=== PATIENT | male | born 1945 | race Caucasian/White ===

== ENCOUNTER 2018-09-25 12:19 | Inpatient (IN) | payer MEDICARE, OTHER ==
[~2018-09-25] VITALS: Ht 175.3 cm; Wt 110.0 kg
[2018-09-25] VITALS (9 sets, daily range): BP systolic 109–181; BP diastolic 63–94
[~2018-09-25 12:19] MED LIST: CITA-278 PO; HCTZ; INSULIN; METF500T7 PO; NOR5T PO; ROSU5TAB4 PO; ZES2.5T PO
[2018-09-25] MEDS ORDERED: enoxaparin 100mg/ml syringe SUBCUT ONE ×2 (12:30)
--- NOTE | 2018-09-25 12:30 | NUR ---
EKG sent to Dr. Charles via text.
[2018-09-25] MEDS ORDERED: nitroGLYCERIN-Tridil 50MG/D5W 250 ML IV PRN (12:31)
[2018-09-25] MEDS ORDERED: LANTUS SQ (12:38)
[2018-09-25 12:40] LABS: BASOPHILS # (AUTO) 0.1 X10'3 (0-0.2); BASOPHILS % (AUTO) 0.7 % (0-1); EOSINOPHILS # (AUTO) 0.1 X10'3 (0-0.9); EOSINOPHILS % (AUTO) 1.6 % (0-6); HEMATOCRIT 51.7 % (42.0-52.0); HEMOGLOBIN 16.7 g/dl (14.0-17.9); LYMPHOCYTES # (AUTO) 1.4 X10'3 (1.1-4.8); LYMPHOCYTES % (AUTO) 20.2 % (21-51); MEAN CORPUSCULAR HEMOGLOBIN 28.9 PG (27.0-31.0); MEAN CORPUSCULAR HGB CONC 32.4 % (33.0-36.5); MEAN CORPUSCULAR VOLUME 89.2 FL (78-98); MEAN PLATELET VOLUME 9.5 FL (7.4-10.4); MONOCYTES # (AUTO) 0.5 X10'3 (0-0.9); MONOCYTES % (AUTO) 6.3 % (2-12); NEUTROPHILS # (AUTO) 5.1 X10'3 (1.8-7.7); NEUTROPHILS % (AUTO) 71.2 % (42-75); PLATELET COUNT 223 X10'3 (140-440); RED CELL DISTRIBUTION WIDTH 12.7 % (11.5-14.5); WHITE BLOOD COUNT 7.2 X10'3 (4.5-11.0)
[2018-09-25 12:54] LABS: ALANINE AMINOTRANSFERASE 28 U/L (12-78); ALBUMIN 3.3 G/DL (3.4-5.0); ALBUMIN/GLOBULIN RATIO 0.8 (1.1-1.5); ALKALINE PHOSPHATASE 135 IU/L (46-116); ANION GAP 13 (8-16); ASPARTATE AMINO TRANSFERASE 26 U/L (10-37); BILIRUBIN,TOTAL 0.4 MG/DL (0.1-1.0); BLOOD UREA NITROGEN 13 MG/DL (7-18); BUN/CREATININE RATIO 12.3 (5.4-32.0); CALCIUM 8.5 MG/DL (8.5-10.1); CHLORIDE 101 MMOL/L (99-107); CREATININE 1.06 MG/DL (0.60-1.10); GLUCOSE 334 MG/DL (70-104); SODIUM 135 MMOL/L (135-145); TOTAL CARBON DIOXIDE 21.3 MMOL/L (24-32); TOTAL PROTEIN 7.2 G/DL (6.4-8.2); eGFR 69 ML/MIN
[2018-09-25 13:02] LABS: MAGNESIUM 1.8 MG/DL (1.5-2.4)
[2018-09-25] MEDS ORDERED: normal saline 1000ml 1,000 ML IV SCH (13:36)
[2018-09-25] MEDS ORDERED: magnesium 4gm in 100ml NS 100 ML IV PRN (13:40)
[2018-09-25] MEDS ORDERED: magnesium 2GM in 50ml NS 50 ML IV PRN (13:40)
[2018-09-25] MEDS ORDERED: ondansetron/PF 4mg/2ml inj IV PRN (13:40)
[2018-09-25] MEDS ORDERED: potassium Cl 40MEQ/NS 500ml 500 ML IV PRN ×2 (13:40)
[2018-09-25] MEDS ORDERED: potassium Cl 20 mEq SR tablet PO PRN ×2 (13:40)
[2018-09-25] MEDS ORDERED: morphine 4 MG/ML inj SYRINge IV PRN (13:40)
[2018-09-25] MEDS ORDERED: magnesium Cl slow-release 64mg tablet PO PRN (13:40)
--- NOTE | 2018-09-25 16:02 | NUR ---
patient lying in gurney. no s/s of distress observed. will continue to monitor.
[2018-09-25] MEDS ORDERED: fentaNYL/PF 50MCG/1 ML 2ML syringe ONE ×2 (16:23→17:11)
[2018-09-25] MEDS ORDERED: midazolam 2 mg/2 ml injection ONE ×3 (16:23→17:33)
[2018-09-25] MEDS ORDERED: heparin 1,000unit/ml 10ml vial 10 ML ONE (16:24)
[2018-09-25] MEDS ORDERED: LIDOcaine 1% (10mg/ml)w/preservative injection 20ml MDV ONE (16:24)
[2018-09-25] MEDS ORDERED: iohexol 350 MG/1 ML 200ml bottle ONE (16:24)
[2018-09-25] MEDS ORDERED: iohexol 350 MG/ML 50ML vial IV ONE (17:06)
[2018-09-25] MEDS ORDERED: diphenhydrAMINE 50 mg/ml inj ONE (17:23)
[2018-09-25] MEDS ORDERED: iohexol 350MG/ML 100ml bottle IV ONE (17:30)
[2018-09-25] MEDS ORDERED: ticagrelor 90mg tablet ONE (17:46)
--- NOTE | 2018-09-25 17:57 | NUR ---
Patient in room ED 4. I have received report from JULIAN Self and had the opportunity to ask questions. Awaiting pt's arrival from cath lab manager.
--- NOTE | 2018-09-25 18:10 | NUR ---
Pt arrived from [facility] via [facility]urney & transferred in to bed without difficulty. Femoral cath site assessed, no hematoma, dressing CDI. Vital signs obtained, pt instructed to remain flat and not to move legs.
--- NOTE | 2018-09-25 18:15 | NUR ---
Patient in room PCU 3011. I have received report from Hamida JORDAN and had the opportunity to ask questions and assume patient care. Patient just arrived from [facility]. Patient is to remain supine for 3 hours. Patient is moving leg stating "I have to pee." Assisted patient with using urinal and educated patient on needing to keep leg still. Patient state "I understand and I will try." RN will continue to reassess and monitor.
--- NOTE | 2018-09-25 18:15 | NUR ---
Problems reprioritized. Patient report given, questions answered & plan of care reviewed with JULIAN Mills.
--- NOTE | 2018-09-25 19:00 | NUR ---
Re educated patient on needing to keep still, and continue to be flat.
[2018-09-25] MEDS ORDERED: MESSAGE TO PHARMACY PO ONE (19:15)
[2018-09-25] MEDS ORDERED: OXAZEpam 15mg capsule PO PRN (19:20)
[2018-09-25] MEDS ORDERED: proCHLORperazine 10 MG/2 ml inj IV PRN (19:20)
[2018-09-25] MEDS ORDERED: HYDROcodone/acetaminophen 10/325mg tab PO PRN (19:20)
[2018-09-25] MEDS ORDERED: normal saline 1000ml 1,000 ML IV ONE (19:20)
[2018-09-25] MEDS ORDERED: HYDROcodone/acetaminophen 5mg/325mg tablet PO PRN (19:20)
[2018-09-25] MEDS ORDERED: heparin, porcine 5000 units/ml vial SQ SCH (20:00)
--- NOTE | 2018-09-25 20:15 | NUR ---
Patient states he has restless leg syndrome, continues to move is leg. Serax given. Will continue to monitor. No hematoma noted. Site is soft, non tender, pedal pulse in tact.
[2018-09-25] MEDS ORDERED: insulin glargine (Lantus) pen - multi-dose SQ SCH (21:00)
[2018-09-25] MEDS ORDERED: amLODIPine 5mg tablet PO SCH (21:00)
--- NOTE | 2018-09-25 21:00 | NUR ---
Hematoma present. Manual pressure applied. aircraft instrument tester at bedside to assess. FemStop applied
--- NOTE | 2018-09-25 21:29 | NUR ---
Dr. Charles's phone service called. RE: HEMATOMA DEVELOPMENT approximately 7cm in size. manual pressure applied followed by femStop application. Re educated patient on needing to be still and flat in the bed.
[2018-09-25] MEDS: metoprolol tartrate 25mg tablet PO SCH (22:09)
[2018-09-25] MEDS: acetylcysteine 200 MG/ml 4ml vial PO SCH (22:09)
[2018-09-25 22:35] LABS: HEMOGLOBIN A1C 8.6 % (4.5-6.2)
--- NOTE | 2018-09-25 22:53 | NUR ---
Second page to Dr. Charles re notice of hematoma and Fem Stop application.
[2018-09-26 02:00] VITALS: BP 106/62
--- NOTE | 2018-09-26 02:10 | NUR ---
Problems reprioritized. Patient report given, questions answered & plan of care reviewed with JULIAN Espinoza. Cath Site assessed, Fem Stop re adjusted, pedal pulses intact. Patient is awake and alert at time of transfer. Patient to ACCE unit via bed. conveyor monitor [address] at this time[address] All belongings transfered with ines.
[2018-09-26 03:00] VITALS: BP 111/74
[2018-09-26 06:00] VITALS: BP 116/76
[2018-09-26 06:27] LABS: ANION GAP 10 (8-16); BLOOD UREA NITROGEN 15 MG/DL (7-18); BUN/CREATININE RATIO 15.3 (5.4-32.0); CHLORIDE 103 MMOL/L (99-107); CHOL/HDL RATIO 3.9 (0.00-4.99); CHOLESTEROL 138 MG/DL (0-200); CREATININE 0.98 MG/DL (0.60-1.10); GLUCOSE 240 MG/DL (70-104); HDL CHOLESTEROL 35 MG/DL (35-60); LDL CHOLESTEROL 91 MG/DL (50-100); MAGNESIUM 1.8 MG/DL (1.5-2.4); SODIUM 135 MMOL/L (135-145); TOTAL CARBON DIOXIDE 21.8 MMOL/L (24-32); TRIGLYCERIDES 115 MG/DL (20-135); eGFR 75 ML/MIN
[2018-09-26 06:28] LABS: BASOPHILS % (AUTO) 0.4 % (0-1); EOSINOPHILS # (AUTO) 0.1 X10'3 (0-0.9); EOSINOPHILS % (AUTO) 0.6 % (0-6); HEMATOCRIT 43.5 % (42.0-52.0); HEMOGLOBIN 14.8 g/dl (14.0-17.9); LYMPHOCYTES # (AUTO) 1.1 X10'3 (1.1-4.8); LYMPHOCYTES % (AUTO) 10.5 % (21-51); MEAN CORPUSCULAR HEMOGLOBIN 29.9 PG (27.0-31.0); MEAN CORPUSCULAR HGB CONC 33.9 % (33.0-36.5); MEAN CORPUSCULAR VOLUME 88.1 FL (78-98); MEAN PLATELET VOLUME 9.5 FL (7.4-10.4); MONOCYTES # (AUTO) 1.1 X10'3 (0-0.9); MONOCYTES % (AUTO) 11.2 % (2-12); NEUTROPHILS # (AUTO) 7.8 X10'3 (1.8-7.7); NEUTROPHILS % (AUTO) 77.3 % (42-75); PLATELET COUNT 206 X10'3 (140-440); RED BLOOD COUNT 4.94 X10'6 (4.70-6.10); RED CELL DISTRIBUTION WIDTH 12.8 % (11.5-14.5); WHITE BLOOD COUNT 10.1 X10'3 (4.5-11.0)
[2018-09-26 06:29] LABS: CREATINE KINASE 1636 U/L (39-308)
[2018-09-26] MEDS: acetylcysteine 200 MG/ml 4ml vial PO SCH (07:32)
[2018-09-26] MEDS: metoprolol tartrate 25mg tablet PO SCH (07:33)
[2018-09-26] MEDS ORDERED: K and/or MAG REPLACEMENT MC SCH (08:00)
[2018-09-26] MEDS ORDERED: citalopram 20mg tablet PO SCH (08:00)
[2018-09-26] MEDS ORDERED: lisinopril 2.5mg tablet PO SCH (08:00)
[2018-09-26] MEDS ORDERED: ticagrelor 90mg tablet PO SCH (08:00)
[2018-09-26] MEDS ORDERED: aspirin 81mg tab.chew PO SCH (08:30)
--- NOTE | 2018-09-26 10:18 | NUR ---
Femstop removed. No additional swelling noted in pt groin sight
[2018-09-26 11:00] VITALS: BP 109/64
--- NOTE | 2018-09-26 11:03 | NUR ---
Groin sight still has no change
--- NOTE | 2018-09-26 14:42 | NUR ---
Dr. Gusman called and said it is okay for patient to go home Paged Dr. Madrigal- "Re: Gurwinder in [phone], patient post heart cath Dr. Gusman says it is okay for him to go home. Can you put in orders for discharge? thank you, Soledad [phone]"
[2018-09-26 15:00] VITALS: BP 117/68
[2018-09-26] MEDS ORDERED: ASPI-1265 PO (15:05)
[2018-09-26] MEDS ORDERED: METO25TA6 PO (15:05)
[2018-09-26] MEDS ORDERED: TICA90TA PO (15:05)
--- NOTE | 2018-09-26 16:12 | NUR ---
Initial: Pt with hx CAD admitted for further workup and to rule out acute coronary syndrome. Pt with A1c 8.6 seen at bedside, pt denies written and verbal DM ed. Pt reports difficulty chewing d/t missing teeth however denies texture modifications at this time. Pt currently on heart healthy CHO controlled diet with documented PO intake 75-100% meeting nutrient needs. Pt pending d/c. Will continue to follow. Recommendations: 1) Continue with heart healthy CHO controlled diet 2) Wt per rx Addendum: 09/26/18 at [address] Amended: Links added.
--- NOTE | 2018-09-26 16:18 | NUR ---
Pt given DC instructions. Pt IV's removed, tips intact. Pt had Brilinta filled by Ryan bedside. Pt assisted to POV by staff.
[2018-09-27] MEDS ORDERED: metFORMIN 500mg tablet PO SCH (07:00)
--- NOTE | 2018-09-27 09:52 | NUR ---
Pt d/c'd before SS assessment. SS referral closed.
== END 2018-09-26 16:00 | disposition home or self-care (01) | DRG 246 ==
LOC: ER 12:20 → ED HOLD 13:36 → PCU 3S 18:10 → MED 3N 09-26 02:13
PROVIDERS: ADMIT Internal Medicine; ATTEND Internal Medicine
PROC: 4A023N7 Measurement of Cardiac Sampling and Pressure, Left Heart, Percutaneous Approach (ICD-10-PCS; principal; 2018-09-25)
PROC: 027036Z Dilation of Coronary Artery, One Artery with Three Drug-eluting Intraluminal Devices, Percutaneous Approach (ICD-10-PCS; 2018-09-25)
PROC: B2111ZZ Fluoroscopy of Multiple Coronary Arteries using Low Osmolar Contrast (ICD-10-PCS; 2018-09-25)
PROC: B2151ZZ Fluoroscopy of Left Heart using Low Osmolar Contrast (ICD-10-PCS; 2018-09-25)
PROC: B3101ZZ Fluoroscopy of Thoracic Aorta using Low Osmolar Contrast (ICD-10-PCS; 2018-09-25)
PROC: B2131ZZ Fluoroscopy of Multiple Coronary Artery Bypass Grafts using Low Osmolar Contrast (ICD-10-PCS; 2018-09-25)
PROC: B2181ZZ Fluoroscopy of Left Internal Mammary Bypass Graft using Low Osmolar Contrast (ICD-10-PCS; 2018-09-25)
PROC: B41F1ZZ Fluoroscopy of Right Lower Extremity Arteries using Low Osmolar Contrast (ICD-10-PCS; 2018-09-25)
DX: T82.858A Stenosis of other vascular prosthetic devices, implants and grafts, initial encounter (principal); I21.4 Non-ST elevation (NSTEMI) myocardial infarction; I25.110 Atherosclerotic heart disease of native coronary artery with unstable angina pectoris; E11.42 Type 2 diabetes mellitus with diabetic polyneuropathy; E78.00 Pure hypercholesterolemia, unspecified; E78.5 Hyperlipidemia, unspecified; F31.9 Bipolar disorder, unspecified; G25.81 Restless legs syndrome; I10 Essential (primary) hypertension; M54.2 Cervicalgia; K21.9 Gastro-esophageal reflux disease without esophagitis; Y83.2 Surgical operation with anastomosis, bypass or graft as the cause of abnormal reaction of the patient, or of later complication, without mention of misadventure at the time of the procedure; S30.1XXA Contusion of abdominal wall, initial encounter; X58.XXXA Exposure to other specified factors, initial encounter; F17.220 Nicotine dependence, chewing tobacco, uncomplicated; I25.2 Old myocardial infarction; Z95.5 Presence of coronary angioplasty implant and graft; Z88.8 Allergy status to other drugs, medicaments and biological substances; Z79.899 Other long term (current) drug therapy; Z79.4 Long term (current) use of insulin; Y92.89 Other specified places as the place of occurrence of the external cause; Z71.6 Tobacco abuse counseling
CPT/HCPCS: 93306; 93459; 96372; 99285; C9600; 36415; 71045; 80048; 80053; 80061; 82550; 82948; 83036; 83735; 83880; 84484; 85025; 87070; 93005; 99152; 99153; A4620; A6257; C1725; C1760; C1769; C1874; G0378; J1200; J1644; J1815; J2001; J2250; J3010; Q9967

== ENCOUNTER 2021-12-24 06:58 | Inpatient (IN) | payer OTHER, MEDICARE ==
[~2021-12-24] VITALS: Ht 175.3 cm; Wt 77.3 kg
[~2021-12-24 06:58] MED LIST changes: +AMLO10TA PO; +APIX5TAB3 PO; +ASPI-1265 PO; -CITA-278 PO; +EZET10TA6 PO; +GLIM1TAB6 PO; -HCTZ; -INSULIN; +LANTUS SQ; +LISI40TA13 PO; +METF-900 PO; -METF500T7 PO; +METO-384 PO; -NOR5T PO; +OMEP20CA15 PO; +ROSU40TA PO; -ROSU5TAB4 PO; -ZES2.5T PO
[2021-12-24 07:34] LABS: BASOPHILS # (AUTO) 0.1 X10'3 (0-0.2); EOSINOPHILS % (AUTO) 0.1 % (0-6); MEAN CORPUSCULAR HGB CONC 33.9 g/dL (33.0-36.5); MEAN CORPUSCULAR VOLUME 89.8 FL (78-98); MONOCYTES # (AUTO) 1.1 X10'3 (0-0.9); WHITE BLOOD COUNT 7.4 X10'3 (4.5-11.0)
[2021-12-24 07:36] LABS: BASOPHILS % (AUTO) 1.1 % (0-1); LYMPHOCYTES # (AUTO) 0.9 X10'3 (1.1-4.8); LYMPHOCYTES % (AUTO) 12.6 % (21-51); MEAN CORPUSCULAR HEMOGLOBIN 30.5 PG (27.0-31.0); MEAN PLATELET VOLUME 9.9 FL (7.4-10.4); MONOCYTES % (AUTO) 14.6 % (2-12); NEUTROPHILS # (AUTO) 5.3 X10'3 (1.8-7.7); NEUTROPHILS % (AUTO) 71.6 % (42-75); PLATELET COUNT 200 X10'3 (140-440); RED BLOOD COUNT 5.56 X10'6 (4.70-6.10); RED CELL DISTRIBUTION WIDTH 15.7 % (11.5-14.5)
[2021-12-24 07:43] LABS: ALANINE AMINOTRANSFERASE 40 U/L (12-78); ALBUMIN 3.8 G/DL (3.4-5.0); ALBUMIN/GLOBULIN RATIO 1.1 (1.1-1.5); ALKALINE PHOSPHATASE 136 IU/L (46-116); ANION GAP 14 (8-16); ASPARTATE AMINO TRANSFERASE 59 U/L (10-37); BILIRUBIN,TOTAL 3.1 MG/DL (0.1-1.0); BLOOD UREA NITROGEN 21 MG/DL (7-18); BUN/CREATININE RATIO 15.1 (5.4-32.0); CALCIUM 9.2 MG/DL (8.5-10.1); CHLORIDE 103 MMOL/L (99-107); CREATININE 1.39 MG/DL (0.60-1.10); GLUCOSE 102 MG/DL (70-104); POTASSIUM 3.9 MMOL/L (3.5-5.1); SODIUM 140 MMOL/L (135-145); TOTAL PROTEIN 7.4 G/DL (6.4-8.2); eGFR 50 ML/MIN
[2021-12-24] MEDS ORDERED: furosemide 40mg/4ml inj IV ONE (07:55)
[2021-12-24] MEDS ORDERED: nitroGLYCERIN 0.4mg SUBLingual tab SL PRN (07:55)
--- NOTE | 2021-12-24 09:13 | NUR ---
PATIENT SITITNG ON THE SIDE OF THE BED, VITAL SIGNS REHECKED.
[2021-12-24] MEDS ORDERED: dextrose 50%-water 50ml dispensing syringe IV PRN ×2 (10:25)
[2021-12-24] MEDS ORDERED: ondansetron/PF 4mg/2ml inj IV PRN (10:25)
[2021-12-24] MEDS ORDERED: bisacodyl 10mg suppository rectal RC PRN (10:25)
[2021-12-24] MEDS ORDERED: magnesium 4gm in 100ml NS 100 ML IV PRN (10:25)
[2021-12-24] MEDS ORDERED: MESSAGE TO PHARMACY PO ONE (10:25)
[2021-12-24] MEDS ORDERED: diphenhydrAMINE 25mg capsule PO PRN (10:25)
[2021-12-24] MEDS ORDERED: acetaminophen 325mg tablet PO PRN ×2 (10:25)
[2021-12-24] MEDS ORDERED: DEXTROSE 15 GM of carb/4 tabs (each vial/BOTTLE has 4 tablets) PO PRN ×2 (10:25)
[2021-12-24] MEDS ORDERED: magnesium hydroxide 30ml (MOM) UD suspension PO PRN (10:25)
[2021-12-24] MEDS ORDERED: magnesium 2GM in 50ml NS 50 ML IV PRN (10:25)
[2021-12-24] MEDS ORDERED: HYDROcodone/acetaminophen 5mg/325mg tablet PO PRN (10:25)
[2021-12-24] MEDS ORDERED: acetaminophen 650mg rectal suppository RC PRN (10:25)
[2021-12-24] MEDS ORDERED: mag hydrox/Alum hydrox/simeth 30ml oral suspension PO PRN (10:25)
[2021-12-24] MEDS ORDERED: naloxone 0.4 mg/ml inj IV PRN (10:25)
[2021-12-24] MEDS ORDERED: potassium CL 10mEq/100ml bag 100 ML IV PRN (10:25)
[2021-12-24] MEDS ORDERED: magnesium Cl slow-release 64mg tablet PO PRN (10:25)
[2021-12-24] MEDS ORDERED: potassium Cl 20 mEq SR tablet PO PRN (10:25)
[2021-12-24] MEDS ORDERED: glucagon, human recombinant 1mg kit SUBCUT PRN (10:25)
[2021-12-24] MEDS ORDERED: HYDROcodone/acetaminophen 10/325mg tab PO PRN (10:25)
[2021-12-24] MEDS ORDERED: morphine 2 MG/ML inj. syringe IV PRN ×2 (10:25)
[2021-12-24] MEDS ORDERED: PERFLUTREN PROTEIN-A MICROSPHR (Optison) 0.22 MG/ML 3ML VIAL IV PRN (10:25)
[2021-12-24 10:43] LABS: D-DIMER 3.79 MG/L FEU (0-0.50)
[2021-12-24 10:49] LABS: HEMOGLOBIN A1C 6.6 % (4.5-6.2)
[2021-12-24 11:11] LABS: CLARITY,URINE CLEAR (Clear); COLOR,URINE YELLOW (Yellow); GLUCOSE, URINE NEGATIVE (Neg); KETONES,URINE NEGATIVE (Neg); LEUKOCYTE ESTERASE ,URINE NEGATIVE (Neg); NITRITES, URINE NEGATIVE (Neg); OCCULT BLOOD,URINE TRACE-INTACT (Neg); PH,URINE 5.5 (4.8-8.0); PROTEIN,URINE NEGATIVE (Neg); UROBILINOGEN,URINE 0.2 E.U/dL (0.2-1.0)
[2021-12-24 11:14] LABS: UA COLLECTION TYPE NON-SPECIFIED
[2021-12-24 11:15] LABS: BACTERIA,URINE NONE SEEN /HPF (Neg); MUCUS STRANDS NONE SEEN /LPF (Neg); RBC,URINE NONE SEEN /HPF (0-2); SQUAMOUS EPITHELIAL CELL,UR NONE SEEN /LPF (FEW); WBC,URINE NONE SEEN /HPF (0-4)
--- NOTE | 2021-12-24 17:39 | NUR ---
pt report called to [email or web address] [email or web address] the pt condtion ,nurse jerardo any futher ques.
[2021-12-24 18:00] VITALS: BP 152/105
--- NOTE | 2021-12-24 18:25 | NUR ---
Problems reprioritized. Patient report given, questions answered & plan of care reviewed with Beth.
[2021-12-24] MEDS: K and/or MAG REPLACEMENT MC SCH (20:00)
[2021-12-24] MEDS: docusate sod 100mg capsule PO SCH (20:00)
[2021-12-24] MEDS: insulin glargine (Lantus) pen - multi-dose SQ SCH (21:00)
[2021-12-24] MEDS: furosemide 10 MG/1 ML 10ml inj IV SCH (21:42)
[2021-12-24 22:00] VITALS: BP 148/109
[2021-12-25 02:00] VITALS: BP 150/105
--- NOTE | 2021-12-25 02:25 | NUR ---
Hypoglycemic event bg 51 pt a/o x4 asymptomatic alert enough to cooperate and swallow admin glucose tabs and apple juice recheck 15min after admin. bg 93
[2021-12-25 06:00] VITALS: BP 147/100
[2021-12-25 07:21] LABS: BASOPHILS # (AUTO) 0.1 X10'3 (0-0.2); BASOPHILS % (AUTO) 1.3 % (0-1); EOSINOPHILS # (AUTO) 0.1 X10'3 (0-0.9); EOSINOPHILS % (AUTO) 1.9 % (0-6); HEMATOCRIT 43.9 % (42.0-52.0); HEMOGLOBIN 14.8 g/dl (14.0-17.9); LYMPHOCYTES # (AUTO) 1.2 X10'3 (1.1-4.8); LYMPHOCYTES % (AUTO) 19.7 % (21-51); MEAN CORPUSCULAR HEMOGLOBIN 29.8 PG (27.0-31.0); MEAN CORPUSCULAR HGB CONC 33.7 g/dL (33.0-36.5); MEAN CORPUSCULAR VOLUME 88.5 FL (78-98); MEAN PLATELET VOLUME 9.5 FL (7.4-10.4); MONOCYTES % (AUTO) 16.8 % (2-12); NEUTROPHILS # (AUTO) 3.7 X10'3 (1.8-7.7); NEUTROPHILS % (AUTO) 60.3 % (42-75); PLATELET COUNT 170 X10'3 (140-440); RED BLOOD COUNT 4.96 X10'6 (4.70-6.10); RED CELL DISTRIBUTION WIDTH 15.2 % (11.5-14.5); WHITE BLOOD COUNT 6.2 X10'3 (4.5-11.0)
[2021-12-25 07:38] LABS: ALANINE AMINOTRANSFERASE 43 U/L (12-78); ALBUMIN 3.1 G/DL (3.4-5.0); ALKALINE PHOSPHATASE 107 IU/L (46-116); ANION GAP 10 (8-16); ASPARTATE AMINO TRANSFERASE 44 U/L (10-37); BILIRUBIN,TOTAL 2.1 MG/DL (0.1-1.0); BLOOD UREA NITROGEN 23 MG/DL (7-18); BUN/CREATININE RATIO 16.7 (5.4-32.0); CALCIUM 8.5 MG/DL (8.5-10.1); CHLORIDE 104 MMOL/L (99-107); CHOL/HDL RATIO 4.2 (0.00-4.99); CHOLESTEROL 164 MG/DL (0-200); CREATININE 1.38 MG/DL (0.60-1.10); GLUCOSE 71 MG/DL (70-104); HDL CHOLESTEROL 39 MG/DL (35-60); LDL CHOLESTEROL 116 MG/DL (50-100); MAGNESIUM 1.8 MG/DL (1.5-2.4); PHOSPHORUS 3.8 MG/DL (2.3-4.5); POTASSIUM 3.4 MMOL/L (3.5-5.1); SODIUM 142 MMOL/L (135-145); TOTAL CARBON DIOXIDE 28.4 MMOL/L (24-32); TOTAL PROTEIN 6.2 G/DL (6.4-8.2); TRIGLYCERIDES 71 MG/DL (20-135); eGFR 50 ML/MIN
[2021-12-25] MEDS: K and/or MAG REPLACEMENT MC SCH ×2 (08:00→20:00)
[2021-12-25] MEDS: docusate sod 100mg capsule PO SCH ×2 (08:02→20:00)
[2021-12-25] MEDS: potassium Cl 20 mEq SR tablet PO PRN ×2 (08:03→12:59)
[2021-12-25] MEDS: furosemide 10 MG/1 ML 10ml inj IV SCH ×2 (08:04→21:39)
--- NOTE | 2021-12-25 08:08 | NUR ---
Diabetes consult: Noted pt w/ hx of DM, A1c 6.6 well controlled and appropriate per ADA guidelines. DM ed not indicated at this time. Addendum: 12/25/21 at [address] Amended: Links added.
[2021-12-25 09:04] LABS: TOTAL CELLS COUNTED 100
[2021-12-25 09:05] LABS: GIANT PLATELET FEW; PLATELET ESTIMATE NORMAL
[2021-12-25 11:00] VITALS: BP 122/82
[2021-12-25] MEDS ORDERED: methylPREDNISolone sod succ 125mg/2ml vial IV ONE (13:40)
[2021-12-25] MEDS: methylPREDNISolone sod succ 125mg/2ml vial IV SCH ×2 (14:00→21:38)
[2021-12-25] MEDS: azithromycin 250mg tablet PO SCH (14:39)
[2021-12-25] MEDS: amLODIPine 5mg tablet PO SCH (14:40)
[2021-12-25] MEDS: metoprolol succinate 25mg (24-HOUR) SR. Tablet PO SCH (14:40)
[2021-12-25 15:00] VITALS: BP 136/91
[2021-12-25] MEDS: ipratropium/albuterol 3ml nebule NEB SCH ×3 (15:05→22:59)
[2021-12-25 18:00] VITALS: BP 125/82
--- NOTE | 2021-12-25 18:55 | NUR ---
Problems reprioritized. Patient report given, questions answered & plan of care reviewed with Beth JORDAN.
[2021-12-25] MEDS: apixaban 5mg tablet PO SCH (21:40)
[2021-12-25 22:00] VITALS: BP 108/69
[2021-12-25] MEDS: insulin glargine (Lantus) pen - multi-dose SQ SCH (22:25)
[2021-12-25] MEDS: insulin Lispro (HumaLOG) vial - multi-dose SQ SCH (22:26)
[2021-12-26 02:00] VITALS: BP 130/92
[2021-12-26] MEDS: methylPREDNISolone sod succ 125mg/2ml vial IV SCH ×2 (02:17→07:44)
[2021-12-26] MEDS: ipratropium/albuterol 3ml nebule NEB SCH ×2 (03:09→07:24)
[2021-12-26 06:00] VITALS: BP 132/84
[2021-12-26 07:06] LABS: EOSINOPHILS % (AUTO) 0 % (0-6); LYMPHOCYTES # (AUTO) 0.3 X10'3 (1.1-4.8); MEAN PLATELET VOLUME 9.9 FL (7.4-10.4); MONOCYTES # (AUTO) 0.1 X10'3 (0-0.9); MONOCYTES % (AUTO) 2.5 % (2-12); WHITE BLOOD COUNT 3.5 X10'3 (4.5-11.0)
[2021-12-26 07:08] LABS: BASOPHILS % (AUTO) 0.6 % (0-1); HEMATOCRIT 46.1 % (42.0-52.0); HEMOGLOBIN 15.7 g/dl (14.0-17.9); LYMPHOCYTES % (AUTO) 9.9 % (21-51); MEAN CORPUSCULAR HEMOGLOBIN 29.6 PG (27.0-31.0); MEAN CORPUSCULAR VOLUME 86.9 FL (78-98); PLATELET COUNT 223 X10'3 (140-440); RED CELL DISTRIBUTION WIDTH 15.3 % (11.5-14.5)
[2021-12-26] MEDS ORDERED: pantoprazole 40mg Tablet.DR PO SCH (07:30)
[2021-12-26 07:35] LABS: ALANINE AMINOTRANSFERASE 47 U/L (12-78); ALBUMIN 3.7 G/DL (3.4-5.0); ALBUMIN/GLOBULIN RATIO 1.1 (1.1-1.5); ALKALINE PHOSPHATASE 123 IU/L (46-116); ANION GAP 16 (8-16); ASPARTATE AMINO TRANSFERASE 31 U/L (10-37); BLOOD UREA NITROGEN 29 MG/DL (7-18); BUN/CREATININE RATIO 17.9 (5.4-32.0); CALCIUM 9.3 MG/DL (8.5-10.1); CHLORIDE 96 MMOL/L (99-107); CREATININE 1.62 MG/DL (0.60-1.10); GLUCOSE 284 MG/DL (70-104); MAGNESIUM 1.7 MG/DL (1.5-2.4); PHOSPHORUS 4.6 MG/DL (2.3-4.5); POTASSIUM 3.8 MMOL/L (3.5-5.1); SODIUM 134 MMOL/L (135-145); TOTAL CARBON DIOXIDE 21.9 MMOL/L (24-32); TOTAL PROTEIN 7.2 G/DL (6.4-8.2); eGFR 42 ML/MIN
[2021-12-26] MEDS: furosemide 10 MG/1 ML 10ml inj IV SCH (07:44)
[2021-12-26] MEDS: apixaban 5mg tablet PO SCH (07:45)
[2021-12-26] MEDS: metoprolol succinate 25mg (24-HOUR) SR. Tablet PO SCH (07:45)
[2021-12-26] MEDS: docusate sod 100mg capsule PO SCH (07:45)
[2021-12-26] MEDS: azithromycin 250mg tablet PO SCH (07:46)
[2021-12-26 07:47] VITALS: BP_SYST 132
[2021-12-26] MEDS: amLODIPine 5mg tablet PO SCH (07:47)
[2021-12-26] MEDS ORDERED: metoprolol succinate 25mg (24-HOUR) SR. Tablet PO SCH (08:00)
[2021-12-26] MEDS ORDERED: amLODIPine 5mg tablet PO SCH (08:00)
[2021-12-26] MEDS ORDERED: atorvastatin 20mg tablet PO SCH (08:00)
[2021-12-26] MEDS ORDERED: lisinopril 20mg tablet PO SCH (08:00)
[2021-12-26] MEDS: K and/or MAG REPLACEMENT MC SCH (08:00)
[2021-12-26] MEDS ORDERED: ezetimibe 10mg tablet PO SCH (08:00)
[2021-12-26] MEDS ORDERED: aspirin 81mg tab.chew PO SCH (08:30)
[2021-12-26] MEDS: insulin Lispro (HumaLOG) vial - multi-dose SQ SCH (09:24)
[2021-12-26] MEDS ORDERED: CYAN500T46 PO (11:22)
[2021-12-26] MEDS ORDERED: EMPA10TA PO (11:22)
[2021-12-26] MEDS ORDERED: INSU100I25 SQ (11:22)
[2021-12-26] MEDS ORDERED: RIVA20TA PO (11:22)
[2021-12-26] MEDS ORDERED: CHOL20002 PO (11:22)
--- NOTE | 2021-12-26 12:00 | NUR ---
patient refused to have his blood sugar checked because he wanted to be discharged.
[2021-12-26] MEDS ORDERED: HYDR-4069 PO (12:22)
[2021-12-26] MEDS ORDERED: ALBU8.5H17 INH (12:22)
[2021-12-26] MEDS ORDERED: FURO-150 PO (12:22)
[2021-12-26] MEDS ORDERED: AZI25OT PO (12:22)
[2021-12-26] MEDS ORDERED: POTA10TA37 PO (12:22)
[2021-12-26] MEDS ORDERED: PRED10TA23 PO (12:24)
--- NOTE | 2021-12-26 13:17 | NUR ---
home instructions and medications were given and explained to patient prior to discharge, PIV discontinued with cannula tip complete and intact. Stable for discharge as per MD.
[2021-12-26] MEDS ORDERED: rivaroxaban 20mg tablet PO SCH (18:00)
[2021-12-27] MEDS ORDERED: cyanocobalamin 500mcg tablet PO SCH (08:00)
[2021-12-27] MEDS ORDERED: cholecalciferol (vitamin D3) 1,000 unit (25mcg) tablet PO SCH (08:00)
== END 2021-12-26 13:03 | disposition home or self-care (01) | DRG 190 ==
LOC: ER 06:59 → ED HOLD 10:30 → EDBEDREQ 17:05 → PCU 3S 18:04
PROVIDERS: ADMIT Family Medicine; ATTEND Family Medicine
DX: J44.1 Chronic obstructive pulmonary disease with (acute) exacerbation (principal); I50.43 Acute on chronic combined systolic (congestive) and diastolic (congestive) heart failure; I11.0 Hypertensive heart disease with heart failure; I48.91 Unspecified atrial fibrillation; E11.9 Type 2 diabetes mellitus without complications; E78.00 Pure hypercholesterolemia, unspecified; D73.5 Infarction of spleen; E78.5 Hyperlipidemia, unspecified; Z20.822 Contact with and (suspected) exposure to COVID-19; F31.9 Bipolar disorder, unspecified; I25.10 Atherosclerotic heart disease of native coronary artery without angina pectoris; K21.9 Gastro-esophageal reflux disease without esophagitis; Z79.01 Long term (current) use of anticoagulants; Z91.19 Patient's noncompliance with other medical treatment and regimen; I25.2 Old myocardial infarction; Z95.1 Presence of aortocoronary bypass graft; Z95.5 Presence of coronary angioplasty implant and graft; Z88.8 Allergy status to other drugs, medicaments and biological substances
CPT/HCPCS: 36415; 71045; 80053; 80061; 81001; 82948; 83036; 83735; 83880; 84100; 84443; 84484; 85007; 85025; 85379; 87081; 87635; 93005; 93306; 94640; 94760; 96374; 99285; G0378; J1815; J1940; J2930

== ENCOUNTER 2022-06-08 12:03 | Emergency (ER) | payer OTHER, MEDICARE ==
[~2022-06-08] VITALS: Ht 175.3 cm; Wt 90.0 kg
[~2022-06-08 12:03] MED LIST changes: +ALBU8HFA PO; -AMLO10TA PO; -APIX5TAB3 PO; -ASPI-1265 PO; +CHOL20002 PO; +CYAN500T46 PO; +EMPA10TA PO; +INSU100I25 SQ; -LANTUS SQ; +METF-516 PO; +RIVA20TA PO
[2022-06-08 12:19] VITALS: BP 130/93
[2022-06-08] MEDS ORDERED: furosemide 10 MG/1 ML 10ml inj IV ONE (13:00)
[2022-06-08 13:01] LABS: BASOPHILS # (AUTO) 0.1 X10'3 (0-0.2); BASOPHILS % (AUTO) 0.9 % (0-1); EOSINOPHILS # (AUTO) 0.1 X10'3 (0-0.9); HEMATOCRIT 48.3 % (42.0-52.0); HEMOGLOBIN 16.4 g/dl (14.0-17.9); LYMPHOCYTES # (AUTO) 0.8 X10'3 (1.1-4.8); MEAN CORPUSCULAR HEMOGLOBIN 32.8 PG (27.0-31.0); MEAN CORPUSCULAR HGB CONC 34.1 g/dL (33.0-36.5); MEAN CORPUSCULAR VOLUME 96.4 FL (78-98); MEAN PLATELET VOLUME 10.3 FL (7.4-10.4); MONOCYTES # (AUTO) 0.9 X10'3 (0-0.9); MONOCYTES % (AUTO) 10.8 % (2-12); NEUTROPHILS # (AUTO) 6.6 X10'3 (1.8-7.7); NEUTROPHILS % (AUTO) 77.3 % (42-75); PLATELET COUNT 235 X10'3 (140-440); RED BLOOD COUNT 5.01 X10'6 (4.70-6.10); RED CELL DISTRIBUTION WIDTH 15.7 % (11.5-14.5); WHITE BLOOD COUNT 8.5 X10'3 (4.5-11.0)
[2022-06-08 13:13] LABS: ALANINE AMINOTRANSFERASE 27 U/L (12-78); ALBUMIN 3.6 G/DL (3.4-5.0); ALKALINE PHOSPHATASE 228 IU/L (46-116); ANION GAP 11 (8-16); ASPARTATE AMINO TRANSFERASE 21 U/L (10-37); BILIRUBIN,TOTAL 2.6 MG/DL (0.1-1.0); BLOOD UREA NITROGEN 17 MG/DL (7-18); BUN/CREATININE RATIO 15.7 (5.4-32.0); CALCIUM 9.3 MG/DL (8.5-10.1); CHLORIDE 104 MMOL/L (99-107); CREATININE 1.08 MG/DL (0.60-1.10); GLUCOSE 68 MG/DL (70-104); POTASSIUM 3.5 MMOL/L (3.5-5.1); SODIUM 141 MMOL/L (135-145); TOTAL CARBON DIOXIDE 26.5 MMOL/L (24-32); TOTAL PROTEIN 7.3 G/DL (6.4-8.2); eGFR 67 ML/MIN
[2022-06-08] MEDS ORDERED: POTA-207 PO (13:53)
[2022-06-08] MEDS ORDERED: FURO40TA4 PO (13:53)
== END 2022-06-08 14:28 | disposition home or self-care (01) ==
LOC: ER 12:03
DX: I50.9 Heart failure, unspecified (principal); E11.9 Type 2 diabetes mellitus without complications; K21.9 Gastro-esophageal reflux disease without esophagitis; E78.00 Pure hypercholesterolemia, unspecified; F31.9 Bipolar disorder, unspecified; Z79.899 Other long term (current) drug therapy
CPT/HCPCS: 36415; 71045; 80053; 83880; 84484; 85025; 87040; 87077; 93005; 96374; 99285; J1940

== ENCOUNTER 2022-06-10 21:08 | Emergency (ER) | payer OTHER, MEDICARE ==
[~2022-06-10 21:08] MED LIST changes: +FURO40TA4 PO; +POTA-207 PO
[2022-06-10 22:37] LABS: BASOPHILS # (AUTO) 0.1 X10'3 (0-0.2); BASOPHILS % (AUTO) 0.7 % (0-1); EOSINOPHILS # (AUTO) 0.1 X10'3 (0-0.9); EOSINOPHILS % (AUTO) 0.7 % (0-6); HEMATOCRIT 40.9 % (42.0-52.0); HEMOGLOBIN 14.1 g/dl (14.0-17.9); LYMPHOCYTES # (AUTO) 0.8 X10'3 (1.1-4.8); LYMPHOCYTES % (AUTO) 9.6 % (21-51); MEAN CORPUSCULAR HEMOGLOBIN 33.3 PG (27.0-31.0); MEAN CORPUSCULAR HGB CONC 34.4 g/dL (33.0-36.5); MEAN PLATELET VOLUME 9.9 FL (7.4-10.4); MONOCYTES # (AUTO) 1.2 X10'3 (0-0.9); MONOCYTES % (AUTO) 13.6 % (2-12); NEUTROPHILS # (AUTO) 6.7 X10'3 (1.8-7.7); NEUTROPHILS % (AUTO) 75.4 % (42-75); PLATELET COUNT 218 X10'3 (140-440); RED BLOOD COUNT 4.22 X10'6 (4.70-6.10); RED CELL DISTRIBUTION WIDTH 15.5 % (11.5-14.5); WHITE BLOOD COUNT 8.9 X10'3 (4.5-11.0)
[2022-06-10 22:58] LABS: ALANINE AMINOTRANSFERASE 27 U/L (12-78); ALKALINE PHOSPHATASE 203 IU/L (46-116); ANION GAP 8 (8-16); ASPARTATE AMINO TRANSFERASE 27 U/L (10-37); BILIRUBIN,TOTAL 1.5 MG/DL (0.1-1.0); BLOOD UREA NITROGEN 21 MG/DL (7-18); BUN/CREATININE RATIO 14.9 (5.4-32.0); CHLORIDE 107 MMOL/L (99-107); CREATININE 1.41 MG/DL (0.60-1.10); SODIUM 145 MMOL/L (135-145); TOTAL CARBON DIOXIDE 30.1 MMOL/L (24-32); TOTAL PROTEIN 6.1 G/DL (6.4-8.2); eGFR 49 ML/MIN
[2022-06-10 23:06] LABS: GLUCOSE 47 MG/DL (70-104)
--- NOTE | 2022-06-10 23:13 | NUR ---
BGL 47, PT HASNT EATEN IN A LONG TIME. PROVIDED SANDWICH, MILK AND CRACKERS. WILL RECHECK BGL.
[2022-06-10] MEDS ORDERED: furosemide 40mg/4ml inj IV ONE (23:15)
--- NOTE | 2022-06-10 23:54 | NUR ---
BGL 80
[2022-06-11 06:55] VITALS: BP 136/96
== END 2022-06-11 08:53 | disposition home or self-care (01) ==
LOC: ER 21:09
DX: I11.0 Hypertensive heart disease with heart failure (principal); K21.9 Gastro-esophageal reflux disease without esophagitis; E11.9 Type 2 diabetes mellitus without complications; F31.9 Bipolar disorder, unspecified; Z79.899 Other long term (current) drug therapy; Z79.84 Long term (current) use of oral hypoglycemic drugs
CPT/HCPCS: 36415; 71045; 80053; 82948; 83880; 84484; 85025; 93005; 96374; 99285; J1940